=== PATIENT | male | born 2000 | race Caucasian/White ===

== ENCOUNTER 2018-10-30 14:19 | Emergency (ER) | payer OTHER ==
[~2018-10-30] VITALS: Ht 188 cm; Wt 104.3 kg
[2018-10-30 14:32] VITALS: BP 124/57
[2018-10-30] MEDS ORDERED: cefTRIAXone SOD 1,000 MG VL ONE (15:10)
[2018-10-30] MEDS ORDERED: EPINEPHrine HCL 1 MG/1 ML AMP SC ONE (15:15)
[2018-10-30] MEDS ORDERED: cefTRIAXone SOD 1,000 MG VL IM ONE (15:15)
== END 2018-10-30 15:54 | disposition home or self-care (01) ==
LOC: ER 14:19
DX: T78.40XA Allergy, unspecified, initial encounter (principal); J03.90 Acute tonsillitis, unspecified
CPT/HCPCS: 96372; 99283; J0171; J0696